=== PATIENT | male | born 1990 | race Caucasian/White ===

== ENCOUNTER 2017-08-28 10:41 | Emergency (ER) | payer BC, OTHER ==
[2017-08-28 10:43] VITALS: BP 130/76; PULSE 86; RESP 16; TEMP 98.5; O2SAT 100
--- NOTE | 2017-08-28 11:21 | PD ---
HPI Chief Complaint: Anxiety Time Seen by Provider: 11:00 Travel History International Travel<30 days: No Contact w/Intl Traveler<30days: No Traveled to known affect area: No History of Present Illness HPI The patient is 27. He arrives complaining of anxiety. He has no suicidal or homicidal ideations. He reports very occasionally drinking alcohol. He denies drug abuse. He does not smoke. He had to leave work today due to anxiety. His employer requested he come to the ED for evaluation. He is now history of suicidal plan or ideation. No hallucination. He states he would like referral to primary care. [facility] Past Medical History Anxiety: Yes Depression: Yes Tetanus Vaccination: Unknown Influenza Vaccination: No Social History Alcohol Use: Yes (SOCIALLY) Tobacco Use: No Substance Use: No Allergies-Medications (Allergen,Severity, Reaction): Coded Allergies: No Known Allergies (Verified Allergy, Unknown, 08/28/17) Reported Meds & Prescriptions Reported Meds & Active Scripts Active No Active Prescriptions or Reported Medications Review of Systems Except as stated in HPI: all other systems reviewed are Neg General / Constitutional: No: Fever Physical Exam Narrative GENERAL: 27-year-old male well-nourished well-developed no acute distress Vital Signs Date Time Temp Pulse Resp B/P (MAP) Pulse Ox O2 Delivery O2 Flow Rate FiO2 08/28/17 10:55 18 08/28/17 10:43 98.5 86 16 130/76 (94) 100 SKIN: Warm and dry. HEAD: Atraumatic. Normocephalic. EYES: Pupils equal and round. No scleral icterus. No injection or drainage. ENT: No nasal bleeding or discharge. Mucous membranes pink and moist. NECK: Trachea midline. No JVD. CARDIOVASCULAR: Regular rate and rhythm. RESPIRATORY: No accessory muscle use. Clear to auscultation. Breath sounds equal bilaterally. GASTROINTESTINAL: Abdomen soft, non-tender, nondistended. Hepatic and splenic margins not palpable. MUSCULOSKELETAL: Extremities without clubbing, cyanosis, or edema. No obvious deformities. NEUROLOGICAL: Awake and alert. No obvious cranial nerve deficits. Motor grossly within normal limits. Five out of 5 muscle strength in the arms and legs. Normal speech. PSYCHIATRIC: No suicidal or homicidal ideation. Data Data Last Documented VS Vital Signs Date Time Temp Pulse Resp B/P (MAP) Pulse Ox O2 Delivery O2 Flow Rate FiO2 08/28/17 10:55 18 08/28/17 10:43 98.5 86 130/76 (94) 100 Orders Orders Ed Discharge Order (08/28/17 11:16) MDM Medical Decision Making Medical Screen Exam Complete: Yes Emergency Medical Condition: Yes Medical Record Reviewed: Yes Differential Diagnosis Anxiety, panic attack, depression Narrative Course Referrals to primary care providers provided at the patient's request. There is no psychiatric emergency or medical emergency with today's visit. The patient prefers not to take medication. Diagnosis Primary Impression: Anxiety [facility] Pt SpecificInfo: No Change to Meds Scripts No Active Prescriptions or Reported Meds Disposition: 01 DISCHARGE HOME Condition: Stable Ervin Ratliff MD August 28, 2017 11:21
== END 2017-08-28 11:52 | disposition home or self-care (01) ==
LOC: NEPD 10:41
DX: F41.9 Anxiety disorder, unspecified (principal)
CPT/HCPCS: 99282